=== PATIENT | male | born 1970 | race Caucasian/White ===

== ENCOUNTER 2017-10-09 05:14 | Emergency (ER) | payer OTHER ==
--- NOTE | 2017-10-09 05:22 | EDPHY ---
H & P Source: Patient HPI/ROS: HPI CHIEF COMPLAINT: "I am not sleeping, I need sleep, I am more manic" HISTORY OF PRESENT ILLNESS: This patient very pleasant 38-year-old male long history of bipolar disorder and takes lithium he has been pretty stable up until recently with interactions with his and for the past week from his . This caused him to have increased stress and poor sleep. He has been dealing with an outpatient psychiatrist who is been trying to adjust his medications started him back on Seroquel will in addition to his regular lithium dose, and additionally added Ambien to help sleep however Ambien did not help him and then switched him to Lunesta last night however this did not help. Patient presents by private vehicle with family members specifically his niece who is a P worker but not assigned to him. The patient denies being suicidal homicidal. Denies being depressed. He does state he feels slightly manic and has had significant sleep loss over the past week. Decided come the emergency room for voluntary mental health evaluation and help with stabilizing his mood. Past Medical History: Bipolar disorder Past Surgical History: No significant surgical history Social History: Denies daily use of drugs alcohol tobacco. Employed by . Family History: Noncontributory ROS REVIEW OF SYSTEMS: A comprehensive 10 point review of systems is otherwise negative aside from elements mentioned in the history of present illness. Exam Constitutional appears well nontoxic, triage nursing summary reviewed, vital signs reviewed, awake/alert. Eyes normal conjunctivae and sclera, EOMI, PERRLA. HENT normal inspection, atraumatic, moist mucus membranes, no epistaxis, neck supple/ no meningismus, no raccoon eyes. Respiratory clear to auscultation bilaterally, normal breath sounds, no respiratory distress, no wheezing. Cardiovascular rate normal, regular rhythm, no murmur, no edema, distal pulses normal. Gastrointestinal soft, non-tender, no rebound, no guarding, normal bowel sounds, no distension, no pulsatile mass. Genitourinary no CVA tenderness. Musculoskeletal no midline vertebral tenderness, full range of motion, no calf swelling, no tenderness of extremities, no meningismus, good pulses, neurovascularly intact. Skin pink, warm, & dry, no rash, skin atraumatic. Neurologic awake, alert and oriented x 3, AAOx3, moves all 4 extremities equally, motor intact, sensory intact, CN II-XII intact, normal cerebellar, normal vision, slightly pressured speech and tangential and non-congruent thoughts Psychiatric Manic. Heme/Lymph/Immune no lymphadenopathy. Differential Diagnosis: Includes but is not limited to in a particular order acute gabriela, bipolar disorder, mood disorder, insomnia, psychosis Medical Decision Making: Plan for this patient blood draw for medical clearance. Patient does not want to be placed on M1 hold or detain her he is voluntary and would like mental health help. He denies wanting to hurt himself or anybody else. He does feel slightly manic. Poor sleep. Plan will be for blood draw for medical clearance. 10 mg Zyprexa to help him relax and then mental health evaluation voluntary. Re-evaluation: 0630AM: Patient signed over to Dr. Deluna at 7:00 a.m. shift change. Patient pending mental health evaluation. (Kevin Lima) Constitutional: Initial Vital Signs Temperature (C) 36.5 C 10/09/17 05:21 Heart Rate 86 10/09/17 05:21 Respiratory Rate 20 10/09/17 05:21 Blood Pressure 128/81 H 10/09/17 05:21 O2 Delivery Mode Room Air Allergies/Adverse Reactions: No Known Allergies Allergy (Unverified 10/09/17 05:48) Home Medications: Medication Instructions Recorded [place] Carbonate 10/09/17 Lunesta 10/09/17 Melatonin 10/09/17 Seroquel 10/09/17 Medical Decision Making Other Provider: 10:00 a.m. the patient has been evaluated by Mental Health. They feel that he meets criteria for placement. He is manic and tangental . They will place him on a hold. 1:00 p.m. the patient has been accepted at [facility] by Dr. Davila. Transfer paperwork will be completed. (Robert Deluna) - Data Points Laboratory Results: Laboratory Results 10/09/17 05:52 10/09/17 05:50 Medications Given: Discontinued Medications Ibuprofen (Motrin Oral Solution) 600 mg PO EDNOW ONE Stop: 10/09/17 11:03 Last Admin: 10/09/17 11:05 Dose: Not Given Ibuprofen (Motrin) 600 mg PO EDNOW ONE Stop: 10/09/17 11:06 Last Admin: 10/09/17 11:07 Dose: 600 mg Lorazepam (Ativan) 1 mg PO EDNOW ONE Stop: 10/09/17 14:28 Last Admin: 10/09/17 14:39 Dose: 1 mg Olanzapine (Zyprexa Zydis) 10 mg PO EDNOW ONE Stop: 10/09/17 05:46 Last Admin: 10/09/17 05:48 Dose: 10 mg Olanzapine (Olanzapine) 10 mg PO ONCE ONE Stop: 10/09/17 10:30 Last Admin: 10/09/17 11:01 Dose: 10 mg Departure - Departure Disposition: Other Psych, Not [place] Clinical Impression: Bipolar disorder Qualifiers: Active/Remission status: currently active Current bipolar episode type: manic Current episode severity: mild Qualified Code(s): F31.11 - Bipolar disorder, current episode manic without psychotic features, mild Condition: Fair Referrals: NONE *PRIMARY CARE P,. [Primary Care Provider] - As per Instructions
[2017-10-09] MEDS ORDERED: OLANZapine DISINTEGR 10 MG TAB PO ONE (05:45)
[2017-10-09 06:08] LABS: % IMMATURE GRANULYOCYTES 0.3 % (0.0-1.1); ABSOLUTE IMMATURE GRANULOCYTES 0.03 10^3/uL (0.00-0.10); ADD DIFF? NO; ADD MORPH? NO; ADD SCAN? NO; ATYPICAL LYMPHOCYTE FLAG 10 (0-99); FRAGMENT RBC FLAG 0 (0-99); HEMATOCRIT 44.9 % (40.0-51.0); HEMOGLOBIN 15.4 g/dL (13.7-17.5); LEFT SHIFT FLG 0 (0-99); LIPEMIA HEMOLYSIS FLAG 90 (0-99); MEAN CELL HEMOGLOBIN 34.3 pg (27.9-34.1); MEAN CELL HEMOGLOBIN CONCENTR. 34.3 g/dL (32.4-36.7); MEAN PLATELET VOLUME 10.1 fL (8.7-11.7); PLATELET CLUMPS FLAG 0 (0-99); PLATELET COUNT 237 10^3/uL (150-400); RED BLOOD CELL COUNT 4.49 10^6/uL (4.40-6.38); RED CELL DISTRIBUTION WIDTH 12.7 % (11.5-15.2)
[2017-10-09 06:25] LABS: ANION GAP 11 mEq/L (8-16); CALCIUM 9.8 mg/dL (8.5-10.4); CARBON DIOXIDE 24 mEq/l (22-31); CHLORIDE 105 mEq/L (97-110); ETHANOL SERUM < 10 mg/dL (0-10); GLOMERULAR FILTRATION RATE > 60; GLUCOSE 109 mg/dL (70-100); LITHIUM 1.4 mEq/L (0.6-1.2); POTASSIUM 4.2 mEq/L (3.5-5.2); SODIUM 140 mEq/L (134-144)
[2017-10-09] MEDS ORDERED: OLANZapine 5 MG TAB PO ONE (10:29)
[2017-10-09] MEDS ORDERED: IBUPROFEN SUSP 100 MG/5 ML UDCUP PO ONE (11:02)
[2017-10-09] MEDS ORDERED: IBUPROFEN 600 MG TAB PO ONE (11:05)
[2017-10-09 14:27] VITALS: BP 138/90; PULSE 75; RESP 18; O2SAT 95
[2017-10-09] MEDS ORDERED: LORazepam 1 MG TAB PO ONE (14:27)
[2017-10-09 15:30] VITALS: TEMP 97.9
== END 2017-10-09 15:53 ==
DX: F31.11 Bipolar disorder, current episode manic without psychotic features, mild (principal)
CPT/HCPCS: 80305; G0480